=== PATIENT | male | born 1960 | race African-American/Black ===

== ENCOUNTER 2020-05-06 08:53 | Inpatient (IN) ==
[2020-05-06] MEDS ORDERED: TIROFIBAN 5,000 MCG/100 ML PREMIX IV ONE (09:30)
[2020-05-06] MEDS ORDERED: HEPARIN 5,000 UNIT/1 ML VIAL ONE (09:31)
[2020-05-06 11:42] LABS: Alanine Aminotransferase 19 U/L (16-61); Albumin 3.5 G/DL (3.4-5.0); Alkaline Phosphatase 136 U/L (45-117); Aspartate Amino Transferase 22 U/L (0-37); Bilirubin,Total < 0.39 MG/DL (0.2-1.0); Blood Urea Nitrogen 10 MG/DL (7-18); Estimated Glom Filtration Rate 102 ML/MIN; Glucose 80 MG/DL (74-106); Osmolality,Calculated 270.8 MOS/KG (273-304); Total Protein 7.8 G/DL (6.4-8.3)
[2020-05-06 12:29] LABS: Basophils % 0.6 % (0.0-0.8); Eosinophils # 0.1 10*3/uL (0.0-0.87); Eosinophils % 1.3 % (0.00-10.9); Hematocrit 43.7 VOL% (42.0-52.0); Hemoglobin 14.7 GM/DL (14.0-18.0); Immature Granulocytes % 0.2 %; Immature Granulocytes Absolute 0.01 #; Lymphocytes # 1.9 10*3/uL (1.4-4.0); Lymphocytes % 35.6 % (21.2-54.2); Mean Corpuscular HGB Conc 33.6 GM/DL (32-36); Mean Corpuscular Volume 90.3 FL (87-102); Mean Platelet Volume 10.1 FL (9.6-12.0); Monocytes % 7.1 % (1.7-12.7); Neutrophils % 55.2 % (38.7-73.9); Platelet Count 217 T/CUMM (130-400); Red Blood Count 4.84 MC/CUMM (3.8-5.5); Red Cell Distribution Width 14.1 % (9.3-17.3); White Blood Count 5.2 T/CUMM (4-12)
[2020-05-06] MEDS ORDERED: ACETAMINOPHEN 325 MG TABLET PO PRN (14:16)
[2020-05-06] MEDS ORDERED: ONDANSETRON 4 MG/2 ML VIAL IV PRN (14:16)
[2020-05-06] MEDS ORDERED: BISACODYL 5 MG TABLET PO PRN (14:16)
[2020-05-06] MEDS ORDERED: ASPIRIN EC 325 MG TABLET PO STA (14:21)
[2020-05-06] MEDS ORDERED: HEPARIN DRIP 25,000 UNITS/500 ML PREMIX IV SCH (14:30)
[2020-05-06 14:38] LABS: PT Patient Result 11.2 SECS (9.8-11.9); Partial Thromboplastin Time 40.9 SECS (23.9-33.8)
[2020-05-06 16:57] LABS: Calcium 9.3 MG/DL (8.5-10.1)
[2020-05-06 16:58] LABS: Albumin 3.8 G/DL (3.4-5.0); Blood Urea Nitrogen 8 MG/DL (7-18)
[2020-05-06 17:09] LABS: Alanine Aminotransferase 21 U/L (16-61); Alkaline Phosphatase 147 U/L (45-117); Aspartate Amino Transferase 26 U/L (0-37); Bilirubin,Total < 0.39 MG/DL (0.2-1.0); Estimated Glom Filtration Rate 108 ML/MIN; Glucose 94 MG/DL (74-106); Osmolality,Calculated 270.8 MOS/KG (273-304); Total Protein 8.2 G/DL (6.4-8.3)
[2020-05-06] MEDS: PHENYTOIN ER 100 MG CAPSULE PO SCH (20:17)
[2020-05-07 06:28] LABS: Bilirubin,Urine Negative (Negative); Blood, Urine Negative (Negative); Glucose,Urine (UA) Negative (Negative); Ketones,Urine Negative (Negative); Mucus,Urine Occasional /LPF (Occasional); Nitrite,Urine Negative (Negative); Protein,Urine Negative; RBC,Urine 1 /HPF (0-4); Squamous Epithelial Cell,Urine Occasional /HPF (0-10); Urine Appearance CLEAR (Clear); Urine Color Yellow (Yellow); Urine Specific Gravity 1.015 (1.001-1.035); Urine Urobilinogen < 2.0 EU/DL (0.2-1.0)
[2020-05-07] MEDS ORDERED: CHLORHEXIDINE 4% SOLN 118 ML BOTTLE TOP ONE (08:05)
[2020-05-07] MEDS: PANTOPRAZOLE 40 MG TABLET PO SCH (10:04)
[2020-05-07] MEDS: PHENYTOIN ER 100 MG CAPSULE PO SCH ×2 (10:04→21:24)
[2020-05-07] MEDS: amLODIPine 10 MG TABLET PO SCH (10:04)
[2020-05-07 10:12] LABS: Troponin I < 0.015 NG/ML (0.00-0.045)
[2020-05-07 12:40] LABS: Troponin I < 0.015 NG/ML (0.00-0.045)
[2020-05-07] MEDS ORDERED: hydrALAZINE 20 MG/1 ML VIAL IV PRN (13:55)
[2020-05-07] MEDS: LOSARTAN 25 MG TABLET PO SCH (16:43)
[2020-05-07 17:30] LABS: Troponin I < 0.015 NG/ML (0.00-0.045)
[2020-05-08] MEDS ORDERED: FAMOTIDINE 20 MG TABLET PO ONE (06:00)
[2020-05-08] MEDS ORDERED: ceFAZolin 1,000 MG in SYRINGE 1 EACH IV ONE (06:00)
[2020-05-08 08:21] LABS: PT Patient Result 10.9 SECS (9.8-11.9); Partial Thromboplastin Time 37.7 SECS (23.9-33.8)
[2020-05-08] MEDS: amLODIPine 10 MG TABLET PO SCH (09:23)
[2020-05-08] MEDS: PHENYTOIN ER 100 MG CAPSULE PO SCH ×2 (09:23→21:11)
[2020-05-08] MEDS: PANTOPRAZOLE 40 MG TABLET PO SCH (09:23)
[2020-05-08] MEDS: LOSARTAN 25 MG TABLET PO SCH (09:23)
[2020-05-08] MEDS ORDERED: HEPARIN 5,000 UNIT/1 ML VIAL ONE (09:48)
[2020-05-08] MEDS ORDERED: MIDAZOLAM 2 MG/2 ML VIAL ONE (10:03)
[2020-05-08] MEDS ORDERED: fentaNYL 100 MCG/2 ML VIAL ONE (10:03)
[2020-05-08] MEDS ORDERED: DEXAMETHASONE 4 MG/1 ML VIAL ONE (10:20)
[2020-05-08] MEDS ORDERED: LIDOCAINE 1% 5 ML VIAL ONE (10:20)
[2020-05-08] MEDS ORDERED: ROPIVACAINE 0.5% 30 ML VIAL ONE (10:20)
[2020-05-08] MEDS ORDERED: propofoL 200 MG/20 ML VIAL IV ONE (11:30)
[2020-05-08] MEDS ORDERED: ePHEDrine 50 MG/ML VIAL ONE (11:35)
[2020-05-08] MEDS ORDERED: GLYCOPYRROLATE 0.4 MG/2 ML VIAL ONE (12:19)
[2020-05-08] MEDS ORDERED: PHENYLEPHRINE 10 MG/1 ML VIAL IV ONE (12:21)
[2020-05-08] MEDS ORDERED: LACTATED RINGERS 1,000 ML IV ONE (12:39)
[2020-05-08] MEDS ORDERED: SODIUM CHLORIDE 0.9% 250 ML IV ONE (12:39)
[2020-05-08] MEDS ORDERED: TISSUE ADHESIVE 1 EACH APPLICATOR TOP ONE (14:07)
[2020-05-08] MEDS ORDERED: ONDANSETRON 4 MG/2 ML VIAL ONE (14:09)
[2020-05-08] MEDS ORDERED: HYDROmorphone 2 MG/1 ML VIAL IV PRN (14:18)
[2020-05-08] MEDS ORDERED: SEVOFLURANE 1 UNIT/15 MINUTE INH ONE (14:39)
[2020-05-09 07:32] LABS: Basophils % 0.2 % (0.0-0.8); Eosinophils % 0.4 % (0.00-10.9); Hematocrit 38.2 VOL% (42.0-52.0); Immature Granulocytes % 0.4 %; Immature Granulocytes Absolute 0.03 #; Lymphocytes # 1.9 10*3/uL (1.4-4.0); Lymphocytes % 21.9 % (21.2-54.2); Mean Corpuscular Volume 89.5 FL (87-102); Mean Platelet Volume 9.8 FL (9.6-12.0); Neutrophils % 69.1 % (38.7-73.9); Platelet Count 169 T/CUMM (130-400); Red Blood Count 4.27 MC/CUMM (3.8-5.5); Red Cell Distribution Width 13.9 % (9.3-17.3); White Blood Count 8.5 T/CUMM (4-12)
[2020-05-09 07:49] LABS: Calcium 8.5 MG/DL (8.5-10.1); Osmolality,Calculated 278.4 MOS/KG (273-304)
[2020-05-09] MEDS: PANTOPRAZOLE 40 MG TABLET PO SCH (09:39)
[2020-05-09] MEDS: PHENYTOIN ER 100 MG CAPSULE PO SCH (09:39)
[2020-05-09] MEDS: LOSARTAN 25 MG TABLET PO SCH ×2 (09:40→10:55)
[2020-05-09] MEDS: amLODIPine 10 MG TABLET PO SCH (09:40)
[2020-05-09 17:13] VITALS: BP 142/58
== END 2020-05-09 17:15 | disposition home or self-care (01) | DRG 181 ==
LOC: N.ED 08:53 → N.3E 14:16
PROVIDERS: ADMIT Surgery; ATTEND Surgery

== ENCOUNTER 2021-01-01 00:40 | Inpatient (IN) ==
[2021-01-01] MEDS ORDERED: SODIUM CHLORIDE 0.9% 1,000 ML IV STA (01:01)
[2021-01-01] MEDS ORDERED: VANCOMYCIN INJ 1,000 MG in SODIUM CHLORIDE 0.9% 250 ML IV STA (01:30)
[2021-01-01 01:36] LABS: Basophils % 0.1 % (0.0-0.8); Eosinophils % 0.1 % (0.00-10.9); Hematocrit 36.6 VOL% (42.0-52.0); Hemoglobin 12.5 GM/DL (14.0-18.0); Immature Granulocytes % 0.5 %; Immature Granulocytes Absolute 0.04 #; Lymphocytes # 0.5 10*3/uL (1.4-4.0); Lymphocytes % 5.7 % (21.2-54.2); Mean Corpuscular HGB Conc 34.2 GM/DL (32-36); Mean Corpuscular Volume 90.4 FL (87-102); Mean Platelet Volume 9.7 FL (9.6-12.0); Monocytes % 6.1 % (1.7-12.7); Neutrophils % 87.5 % (38.7-73.9); Platelet Count 204 T/CUMM (130-400); Red Blood Count 4.05 MC/CUMM (3.8-5.5); Red Cell Distribution Width 14.3 % (9.3-17.3); White Blood Count 7.9 T/CUMM (4-12)
[2021-01-01 02:03] LABS: Alanine Aminotransferase 31 U/L (16-61); Albumin 2.9 G/DL (3.4-5.0); Alkaline Phosphatase 109 U/L (45-117); Aspartate Amino Transferase 52 U/L (0-37); Blood Urea Nitrogen 16 MG/DL (7-18); Calcium 8.6 MG/DL (8.5-10.1); Carbon Dioxide 30 MMOL/L (21-32); Estimated Glom Filtration Rate 122 ML/MIN; Glucose 111 MG/DL (74-106); Osmolality,Calculated 278.5 MOS/KG (273-304); Potassium 3.8 MMOL/L (3.5-5.1); Sodium 139 MMOL/L (136-145); Total Protein 7.3 G/DL (6.4-8.2)
[2021-01-01 02:06] LABS: Bilirubin,Urine Negative (Negative); Blood, Urine Small mg/dL (Negative); Glucose,Urine (UA) Negative (Negative); Hyaline Casts,Urine 4 /LPF (0-3); Ketones,Urine Negative (Negative); Mucus,Urine Many /LPF (Occasional); Nitrite,Urine Negative (Negative); Protein,Urine 100 MG/DL; RBC,Urine 12 /HPF (0-4); Squamous Epithelial Cell,Urine Occasional /HPF (0-10); Urine Appearance CLEAR (Clear); Urine Color Yellow (Yellow); Urine Specific Gravity 1.024 (1.001-1.035)
[2021-01-01 02:10] LABS: Barbiturates Screen,Urine Negative (Negative); Benzodiazepines Screen,Urine Positive (Negative); Cannabinoid Screen,Urine Positive (Negative); Opiate Screen,Urine Positive (Negative); Phencyclidine Screen,Urine Negative (Negative)
[2021-01-01] MEDS ORDERED: DEXTROSE 50% 25 GM/50 ML VIAL IV PRN (04:07)
[2021-01-01] MEDS ORDERED: GLUCAGON 1 MG VIAL IM PRN (04:07)
[2021-01-01 04:10] LABS: Hypochromasia Slight; Microcytosis Slight; Platelet Estimate Normal
[2021-01-01] MEDS ORDERED: LABETALOL 20 MG/4 ML SYRINGE IV ONE (05:44)
[2021-01-01] MEDS: PIPERACILLIN/TAZOBACTAM 3,375 MG in SODIUM CHLORIDE 0.9% 100 ML IV SCH ×3 (06:30→22:34)
[2021-01-01 06:35] LABS: Lactic Acid 0.8 MMOL/L (0.4-2.0)
[2021-01-01 06:41] LABS: Calcium 8.6 MG/DL (8.5-10.1); Osmolality,Calculated 276.5 MOS/KG (273-304); Thyroid Stimulating Hormone 0.615 uIU/ml (0.358-3.74)
[2021-01-01] MEDS: amLODIPine 10 MG TABLET PO SCH ×2 (08:32→08:50)
[2021-01-01] MEDS: ENOXAPARIN 40 MG/0.4 ML SYRINGE SUBCUT SCH (08:32)
[2021-01-01] MEDS: LOSARTAN 50 MG TABLET PO SCH ×2 (08:32→08:50)
[2021-01-01] MEDS: PHENYTOIN ER 100 MG CAPSULE PO SCH ×2 (08:48→21:40)
[2021-01-01] MEDS: LORazepam 2 MG/1 ML VIAL IV PRN ×2 (08:49→12:18)
[2021-01-01] MEDS: hydrALAZINE 20 MG/1 ML VIAL IV PRN (12:17)
[2021-01-01] MEDS: ACETAMINOPHEN 650 MG SUPP RECTAL PRN (12:18)
[2021-01-01] MEDS ORDERED: KETOROLAC 15 MG/1 ML VIAL IV ONE (14:53)
[2021-01-01] MEDS: PHENYTOIN 100 MG/2 ML VIAL IV SCH ×2 (15:56→22:31)
[2021-01-01] MEDS: VANCOMYCIN INJ 750 MG in SODIUM CHLORIDE 0.9% 250 ML IV SCH (17:52)
[2021-01-01] MEDS: IBUPROFEN 100 MG/5 ML UDCUP PO PRN (21:40)
[2021-01-02] MEDS: VANCOMYCIN INJ 750 MG in SODIUM CHLORIDE 0.9% 250 ML IV SCH ×2 (03:53→15:13)
[2021-01-02 06:00] LABS: Basophils % 0.2 % (0.0-0.8); Eosinophils % 0.1 % (0.00-10.9); Hemoglobin 11.9 GM/DL (14.0-18.0); Immature Granulocytes % 0.6 %; Immature Granulocytes Absolute 0.05 #; Lymphocytes # 0.9 10*3/uL (1.4-4.0); Lymphocytes % 9.6 % (21.2-54.2); Mean Corpuscular HGB Conc 33.1 GM/DL (32-36); Mean Corpuscular Volume 90.7 FL (87-102); Mean Platelet Volume 9.6 FL (9.6-12.0); Monocytes % 7.5 % (1.7-12.7); Platelet Count 200 T/CUMM (130-400); Red Blood Count 3.97 MC/CUMM (3.8-5.5); Red Cell Distribution Width 14.3 % (9.3-17.3)
[2021-01-02 06:29] LABS: Albumin 2.2 G/DL (3.4-5.0); Bilirubin,Total 0.8 MG/DL (0.20-1.00); Calcium 8.2 MG/DL (8.5-10.1); Potassium 3.8 MMOL/L (3.5-5.1); Risk Ratio 1.88; Total Protein 6.3 G/DL (6.4-8.2)
[2021-01-02] MEDS: PIPERACILLIN/TAZOBACTAM 3,375 MG in SODIUM CHLORIDE 0.9% 100 ML IV SCH ×3 (06:42→23:55)
[2021-01-02] MEDS: PHENYTOIN 100 MG/2 ML VIAL IV SCH ×3 (07:09→23:36)
[2021-01-02] MEDS: amLODIPine 10 MG TABLET PO SCH (09:19)
[2021-01-02] MEDS: LOSARTAN 50 MG TABLET PO SCH (09:20)
[2021-01-02] MEDS: ENOXAPARIN 40 MG/0.4 ML SYRINGE SUBCUT SCH (09:20)
[2021-01-02] MEDS: IBUPROFEN 100 MG/5 ML UDCUP PO PRN ×2 (09:20→20:45)
[2021-01-02] MEDS: MENTHOL/ZINC OXIDE OINT 71 GM JAR TOP SCH (11:55)
[2021-01-02] MEDS: ACETAMINOPHEN 650 MG SUPP RECTAL PRN (11:55)
[2021-01-03 06:18] LABS: Basophils % 0.2 % (0.0-0.8); Eosinophils % 0.3 % (0.00-10.9); Hematocrit 39.5 VOL% (42.0-52.0); Hemoglobin 13.4 GM/DL (14.0-18.0); Immature Granulocytes % 0.4 %; Immature Granulocytes Absolute 0.04 #; Lymphocytes # 1.3 10*3/uL (1.4-4.0); Lymphocytes % 12.8 % (21.2-54.2); Mean Corpuscular HGB Conc 33.9 GM/DL (32-36); Mean Corpuscular Volume 90.4 FL (87-102); Mean Platelet Volume 9.3 FL (9.6-12.0); Monocytes % 7.2 % (1.7-12.7); Neutrophils % 79.1 % (38.7-73.9); Platelet Count 171 T/CUMM (130-400); Red Blood Count 4.37 MC/CUMM (3.8-5.5); Red Cell Distribution Width 14.2 % (9.3-17.3); White Blood Count 10.1 T/CUMM (4-12)
[2021-01-03] MEDS: VANCOMYCIN INJ 750 MG in SODIUM CHLORIDE 0.9% 250 ML IV SCH (07:33)
[2021-01-03] MEDS: PIPERACILLIN/TAZOBACTAM 3,375 MG in SODIUM CHLORIDE 0.9% 100 ML IV SCH ×2 (07:33→14:45)
[2021-01-03] MEDS: PHENYTOIN 100 MG/2 ML VIAL IV SCH ×3 (07:33→23:40)
[2021-01-03 08:35] LABS: Albumin 2.1 G/DL (3.4-5.0); Bilirubin,Total 0.6 MG/DL (0.20-1.00); Calcium 8.8 MG/DL (8.5-10.1); Osmolality,Calculated 271.8 MOS/KG (273-304); Total Protein 6.6 G/DL (6.4-8.2)
[2021-01-03] MEDS ORDERED: propofoL 200 MG/20 ML VIAL IV ONE (09:07)
[2021-01-03] MEDS ORDERED: fentaNYL 100 MCG/2 ML VIAL ONE (09:07)
[2021-01-03] MEDS ORDERED: MIDAZOLAM 2 MG/2 ML VIAL ONE (09:07)
[2021-01-03] MEDS ORDERED: LIDOCAINE 2% 5 ML VIAL ONE (09:07)
[2021-01-03] MEDS: MENTHOL/ZINC OXIDE OINT 71 GM JAR TOP SCH (09:10)
[2021-01-03] MEDS: amLODIPine 10 MG TABLET PO SCH (09:10)
[2021-01-03] MEDS: LOSARTAN 50 MG TABLET PO SCH (09:10)
[2021-01-03] MEDS ORDERED: LIDOCAINE 1% 5 ML VIAL ONE (09:11)
[2021-01-03] MEDS ORDERED: DEXAMETHASONE 4 MG/1 ML VIAL ONE (09:11)
[2021-01-03] MEDS ORDERED: BUPIVACAINE MPF 0.25% 30 ML VIAL ONE (09:11)
[2021-01-03] MEDS ORDERED: ePHEDrine 50 MG/ML VIAL ONE (10:20)
[2021-01-03] MEDS ORDERED: SEVOFLURANE 1 UNIT/15 MINUTE INH ONE ×5 (10:47→11:17)
[2021-01-03] MEDS ORDERED: HYDROmorphone 2 MG/1 ML VIAL ONE (10:47)
[2021-01-03] MEDS ORDERED: GLUCAGON 1 MG VIAL IM PRN (11:07)
[2021-01-03] MEDS ORDERED: DEXTROSE 50% 25 GM/50 ML VIAL IV PRN (11:07)
[2021-01-03] MEDS: INSULIN REGULAR 100 UNIT/ML SUBCUT SCH ×3 (11:42→23:24)
[2021-01-03] MEDS: KETOROLAC 10 MG TABLET PO SCH ×2 (17:12→23:42)
[2021-01-04] MEDS: VANCOMYCIN INJ 750 MG in SODIUM CHLORIDE 0.9% 250 ML IV SCH ×3 (00:47→23:51)
[2021-01-04] MEDS: PIPERACILLIN/TAZOBACTAM 3,375 MG in SODIUM CHLORIDE 0.9% 100 ML IV SCH ×3 (02:13→17:23)
[2021-01-04] MEDS: LORazepam 2 MG/1 ML VIAL IV PRN (03:41)
[2021-01-04] MEDS: KETOROLAC 10 MG TABLET PO SCH ×3 (06:22→17:49)
[2021-01-04] MEDS: LOSARTAN 50 MG TABLET PO SCH (08:39)
[2021-01-04] MEDS: amLODIPine 10 MG TABLET PO SCH (08:39)
[2021-01-04] MEDS: PHENYTOIN 100 MG/2 ML VIAL IV SCH ×2 (08:40→15:13)
[2021-01-04] MEDS: INSULIN REGULAR 100 UNIT/ML SUBCUT SCH ×4 (08:40→20:38)
[2021-01-04] MEDS: ENOXAPARIN 40 MG/0.4 ML SYRINGE SUBCUT SCH (09:16)
[2021-01-04] MEDS: MENTHOL/ZINC OXIDE OINT 71 GM JAR TOP SCH (09:17)
[2021-01-04] MEDS ORDERED: PHENYTOIN ER 100 MG CAPSULE PO SCH (16:00)
[2021-01-04] MEDS ORDERED: LORazepam 2 MG/1 ML VIAL IV PRN (18:16)
[2021-01-05] MEDS: KETOROLAC 10 MG TABLET PO SCH ×5 (00:53→23:47)
[2021-01-05] MEDS: PHENYTOIN 100 MG/2 ML VIAL IV SCH ×4 (00:54→23:47)
[2021-01-05] MEDS: PIPERACILLIN/TAZOBACTAM 3,375 MG in SODIUM CHLORIDE 0.9% 100 ML IV SCH ×3 (01:30→17:27)
[2021-01-05 06:56] LABS: Basophils % 0.3 % (0.0-0.8); Eosinophils # 0.2 10*3/uL (0.0-0.87); Eosinophils % 2.4 % (0.00-10.9); Hematocrit 36.3 VOL% (42.0-52.0); Hemoglobin 12.1 GM/DL (14.0-18.0); Immature Granulocytes % 0.7 %; Immature Granulocytes Absolute 0.05 #; Lymphocytes # 0.9 10*3/uL (1.4-4.0); Mean Corpuscular HGB Conc 33.3 GM/DL (32-36); Mean Corpuscular Volume 90.1 FL (87-102); Mean Platelet Volume 9.2 FL (9.6-12.0); Neutrophils % 76.6 % (38.7-73.9); Platelet Count 205 T/CUMM (130-400); Red Blood Count 4.03 MC/CUMM (3.8-5.5); Red Cell Distribution Width 14.1 % (9.3-17.3); White Blood Count 7.6 T/CUMM (4-12)
[2021-01-05 07:20] LABS: Albumin 1.9 G/DL (3.4-5.0); Bilirubin,Total 1.4 MG/DL (0.20-1.00); Calcium 8.3 MG/DL (8.5-10.1); Osmolality,Calculated 279.3 MOS/KG (273-304); Potassium 3.6 MMOL/L (3.5-5.1); Total Protein 6.2 G/DL (6.4-8.2)
[2021-01-05] MEDS: INSULIN REGULAR 100 UNIT/ML SUBCUT SCH ×4 (07:51→21:03)
[2021-01-05] MEDS: ENOXAPARIN 40 MG/0.4 ML SYRINGE SUBCUT SCH (08:55)
[2021-01-05] MEDS: LOSARTAN 50 MG TABLET PO SCH (08:55)
[2021-01-05] MEDS: amLODIPine 10 MG TABLET PO SCH (08:55)
[2021-01-05] MEDS: MENTHOL/ZINC OXIDE OINT 71 GM JAR TOP SCH (09:25)
[2021-01-05] MEDS: VANCOMYCIN INJ 750 MG in SODIUM CHLORIDE 0.9% 250 ML IV SCH ×2 (14:37→22:28)
[2021-01-06] MEDS: PIPERACILLIN/TAZOBACTAM 3,375 MG in SODIUM CHLORIDE 0.9% 100 ML IV SCH ×3 (01:12→16:10)
[2021-01-06] MEDS: KETOROLAC 10 MG TABLET PO SCH ×4 (05:14→23:53)
[2021-01-06 06:24] LABS: Basophils % 0.3 % (0.0-0.8); Eosinophils # 0.2 10*3/uL (0.0-0.87); Eosinophils % 2.6 % (0.00-10.9); Hematocrit 39.8 VOL% (42.0-52.0); Hemoglobin 13.3 GM/DL (14.0-18.0); Immature Granulocytes % 0.5 %; Immature Granulocytes Absolute 0.03 #; Lymphocytes # 1.1 10*3/uL (1.4-4.0); Lymphocytes % 16.1 % (21.2-54.2); Mean Corpuscular HGB Conc 33.4 GM/DL (32-36); Mean Corpuscular Volume 89.6 FL (87-102); Mean Platelet Volume 10.1 FL (9.6-12.0); Neutrophils % 71.5 % (38.7-73.9); Platelet Count 227 T/CUMM (130-400); Red Blood Count 4.44 MC/CUMM (3.8-5.5); White Blood Count 6.7 T/CUMM (4-12)
[2021-01-06 06:44] LABS: Calcium 8.7 MG/DL (8.5-10.1); Osmolality,Calculated 277.4 MOS/KG (273-304); Potassium 3.7 MMOL/L (3.5-5.1)
[2021-01-06] MEDS: INSULIN REGULAR 100 UNIT/ML SUBCUT SCH ×4 (08:26→21:12)
[2021-01-06] MEDS: ENOXAPARIN 40 MG/0.4 ML SYRINGE SUBCUT SCH (09:19)
[2021-01-06] MEDS: MENTHOL/ZINC OXIDE OINT 71 GM JAR TOP SCH (09:19)
[2021-01-06] MEDS: PHENYTOIN 100 MG/2 ML VIAL IV SCH ×3 (09:19→23:52)
[2021-01-06] MEDS: amLODIPine 10 MG TABLET PO SCH (09:19)
[2021-01-06] MEDS: LOSARTAN 50 MG TABLET PO SCH (09:19)
[2021-01-06] MEDS: VANCOMYCIN INJ 750 MG in SODIUM CHLORIDE 0.9% 250 ML IV SCH ×2 (13:28→23:03)
[2021-01-07] MEDS: PIPERACILLIN/TAZOBACTAM 3,375 MG in SODIUM CHLORIDE 0.9% 100 ML IV SCH ×2 (00:45→08:54)
[2021-01-07] MEDS: KETOROLAC 10 MG TABLET PO SCH ×3 (05:18→17:32)
[2021-01-07 05:32] LABS: Basophils % 0.3 % (0.0-0.8); Eosinophils # 0.2 10*3/uL (0.0-0.87); Hematocrit 34.2 VOL% (42.0-52.0); Immature Granulocytes % 0.3 %; Immature Granulocytes Absolute 0.02 #; Lymphocytes # 1.2 10*3/uL (1.4-4.0); Lymphocytes % 20.3 % (21.2-54.2); Mean Corpuscular Volume 90.5 FL (87-102); Mean Platelet Volume 10.1 FL (9.6-12.0); Monocytes % 10.3 % (1.7-12.7); Neutrophils % 65.8 % (38.7-73.9); Platelet Count 243 T/CUMM (130-400); Red Blood Count 3.78 MC/CUMM (3.8-5.5); Red Cell Distribution Width 13.9 % (9.3-17.3)
[2021-01-07 05:35] LABS: Hemoglobin 11.3 GM/DL (14.0-18.0)
[2021-01-07 05:44] LABS: Calcium 8.4 MG/DL (8.5-10.1); Osmolality,Calculated 281.1 MOS/KG (273-304); Potassium 3.6 MMOL/L (3.5-5.1)
[2021-01-07] MEDS: INSULIN REGULAR 100 UNIT/ML SUBCUT SCH ×2 (08:00→11:51)
[2021-01-07] MEDS: amLODIPine 10 MG TABLET PO SCH (08:22)
[2021-01-07] MEDS: LOSARTAN 50 MG TABLET PO SCH (08:22)
[2021-01-07] MEDS: PHENYTOIN 100 MG/2 ML VIAL IV SCH (08:22)
[2021-01-07] MEDS: ENOXAPARIN 40 MG/0.4 ML SYRINGE SUBCUT SCH (08:22)
[2021-01-07] MEDS: MENTHOL/ZINC OXIDE OINT 71 GM JAR TOP SCH (09:00)
[2021-01-07] MEDS: PHENYTOIN ER 100 MG CAPSULE PO SCH ×2 (09:05→21:07)
[2021-01-07] MEDS: VANCOMYCIN INJ 750 MG in SODIUM CHLORIDE 0.9% 250 ML IV SCH (12:55)
[2021-01-07] MEDS: hydrALAZINE 20 MG/1 ML VIAL IV PRN (15:43)
[2021-01-07] MEDS ORDERED: TUBERCULIN SKIN TEST 0.1 ML SYRINGE INTRADERM ONE (16:07)
[2021-01-07] MEDS ORDERED: levETIRAcetam 500 MG TABLET PO SCH (21:00)
[2021-01-07] MEDS: levETIRAcetam 250 MG TABLET PO SCH (21:07)
[2021-01-08] MEDS: KETOROLAC 10 MG TABLET PO SCH ×3 (00:38→11:54)
[2021-01-08] MEDS: amLODIPine 10 MG TABLET PO SCH (08:41)
[2021-01-08] MEDS: ENOXAPARIN 40 MG/0.4 ML SYRINGE SUBCUT SCH (08:41)
[2021-01-08] MEDS: PHENYTOIN ER 100 MG CAPSULE PO SCH ×2 (08:41→20:25)
[2021-01-08] MEDS: LOSARTAN 50 MG TABLET PO SCH (08:42)
[2021-01-08] MEDS: levETIRAcetam 250 MG TABLET PO SCH ×2 (08:42→20:25)
[2021-01-08] MEDS: hydrALAZINE 10 MG TABLET PO SCH ×3 (09:01→20:25)
[2021-01-08] MEDS: MENTHOL/ZINC OXIDE OINT 71 GM JAR TOP SCH (10:14)
[2021-01-09 07:50] VITALS: BP 171/95
[2021-01-09] MEDS: ENOXAPARIN 40 MG/0.4 ML SYRINGE SUBCUT SCH (08:24)
[2021-01-09] MEDS: LOSARTAN 50 MG TABLET PO SCH (08:25)
[2021-01-09] MEDS: hydrALAZINE 25 MG TABLET PO SCH ×2 (08:25→08:26)
[2021-01-09] MEDS: PHENYTOIN ER 100 MG CAPSULE PO SCH (08:25)
[2021-01-09] MEDS: levETIRAcetam 250 MG TABLET PO SCH (08:25)
[2021-01-09] MEDS: amLODIPine 10 MG TABLET PO SCH (08:25)
[2021-01-09] MEDS ORDERED: BISACODYL 10 MG SUPP RECTAL ONE (08:54)
[2021-01-09] MEDS: MENTHOL/ZINC OXIDE OINT 71 GM JAR TOP SCH (10:09)
== END 2021-01-09 10:45 | DRG 26 ==
LOC: EDUNIT# → EDBD → N.ED 00:40 → N.EDINP 04:07 → SUATTDRO 04:07 → N.3E 05:30
PROVIDERS: ADMIT Internal Medicine; ATTEND Internal Medicine

== ENCOUNTER 2021-03-19 15:35 | Inpatient (IN) ==
[2021-03-19] MEDS ORDERED: VANCOMYCIN INJ 1,500 MG in SODIUM CHLORIDE 0.9% 500 ML IV STA (16:16)
[2021-03-19] MEDS ORDERED: PIPERACILLIN/TAZOBACTAM 3,375 MG in SODIUM CHLORIDE 0.9% 100 ML IV STA (16:16)
[2021-03-19 17:04] LABS: Basophils % 0.3 % (0.0-0.8); Eosinophils % 0.2 % (0.00-10.9); Immature Granulocytes % 0.4 %; Immature Granulocytes Absolute 0.04 #; Lymphocytes # 1.1 10*3/uL (1.4-4.0); Mean Corpuscular HGB Conc 32.4 GM/DL (32-36); Mean Corpuscular Volume 91.4 FL (87-102); Mean Platelet Volume 9.9 FL (9.6-12.0); Monocytes % 9.3 % (1.7-12.7); Neutrophils % 77.8 % (38.7-73.9); Platelet Count 305 T/CUMM (130-400); Red Blood Count 4.05 MC/CUMM (3.8-5.5); Red Cell Distribution Width 14.5 % (9.3-17.3); White Blood Count 9.4 T/CUMM (4-12)
[2021-03-19] MEDS ORDERED: amLODIPine 5 MG TABLET PO STA (17:27)
[2021-03-19 17:39] LABS: Calcium 8.9 MG/DL (8.5-10.1); Osmolality,Calculated 278.5 MOS/KG (273-304); Potassium 4.1 MMOL/L (3.5-5.1)
[2021-03-19] MEDS ORDERED: ONDANSETRON 4 MG/2 ML VIAL IV PRN (17:57)
[2021-03-19 18:10] LABS: Sedimentation Rate-Westergren 75 MM/HR (0-20)
[2021-03-20] MEDS: PIPERACILLIN/TAZOBACTAM 3,375 MG in SODIUM CHLORIDE 0.9% 100 ML IV SCH ×3 (04:43→20:58)
[2021-03-20 06:47] LABS: Basophils % 0.4 % (0.0-0.8); Eosinophils % 0.3 % (0.00-10.9); Hematocrit 35.5 VOL% (42.0-52.0); Hemoglobin 11.1 GM/DL (14.0-18.0); Immature Granulocytes % 0.4 %; Immature Granulocytes Absolute 0.04 #; Lymphocytes # 1.1 10*3/uL (1.4-4.0); Mean Corpuscular HGB Conc 31.3 GM/DL (32-36); Mean Corpuscular Volume 94.7 FL (87-102); Mean Platelet Volume 10.5 FL (9.6-12.0); Monocytes % 9.8 % (1.7-12.7); Neutrophils % 78.1 % (38.7-73.9); Platelet Count 273 T/CUMM (130-400); Red Blood Count 3.75 MC/CUMM (3.8-5.5); Red Cell Distribution Width 14.3 % (9.3-17.3); White Blood Count 10.3 T/CUMM (4-12)
[2021-03-20 07:02] LABS: Calcium 8.9 MG/DL (8.5-10.1); Potassium 3.7 MMOL/L (3.5-5.1)
[2021-03-20] MEDS ORDERED: BUPIVACAINE 0.5% 50 ML VIAL ONE (10:19)
[2021-03-20] MEDS ORDERED: fentaNYL 100 MCG/2 ML VIAL ONE (10:21)
[2021-03-20] MEDS ORDERED: MIDAZOLAM 2 MG/2 ML VIAL ONE (10:21)
[2021-03-20] MEDS ORDERED: ONDANSETRON 4 MG/2 ML VIAL ONE (10:21)
[2021-03-20] MEDS ORDERED: LIDOCAINE 2% 5 ML VIAL ONE (10:21)
[2021-03-20] MEDS ORDERED: propofoL 200 MG/20 ML VIAL IV ONE (10:21)
[2021-03-20] MEDS ORDERED: KETOROLAC 30 MG/1 ML VIAL ONE (11:30)
[2021-03-20] MEDS ORDERED: LACTATED RINGERS 1,000 ML IV SCH (11:30)
[2021-03-20] MEDS ORDERED: PHENYLEPHRINE 1 MG/10 ML SYRINGE IV ONE (11:31)
[2021-03-20] MEDS ORDERED: SEVOFLURANE 1 UNIT/15 MINUTE INH ONE (11:43)
[2021-03-20] MEDS: levETIRAcetam 250 MG TABLET PO SCH (15:25)
[2021-03-20] MEDS: hydrALAZINE 25 MG TABLET PO SCH ×2 (15:25→20:58)
[2021-03-20] MEDS: levETIRAcetam 500 MG TABLET PO SCH (15:25)
[2021-03-20] MEDS: PHENYTOIN ER 100 MG CAPSULE PO SCH (21:55)
[2021-03-21] MEDS: levETIRAcetam 500 MG TABLET PO SCH ×3 (02:29→14:07)
[2021-03-21] MEDS: levETIRAcetam 250 MG TABLET PO SCH ×2 (02:46→14:07)
[2021-03-21] MEDS: PIPERACILLIN/TAZOBACTAM 3,375 MG in SODIUM CHLORIDE 0.9% 100 ML IV SCH ×3 (04:32→22:03)
[2021-03-21] MEDS: LOSARTAN 50 MG TABLET PO SCH (08:26)
[2021-03-21] MEDS: hydrALAZINE 25 MG TABLET PO SCH ×3 (08:26→22:02)
[2021-03-21] MEDS: PHENYTOIN ER 100 MG CAPSULE PO SCH ×2 (08:26→22:03)
[2021-03-21] MEDS: amLODIPine 10 MG TABLET PO SCH (08:26)
[2021-03-21] MEDS ORDERED: INFLUENZA VIRUS VACCINE 0.5 ML SYRINGE IM ONE (11:28)
[2021-03-22] MEDS: levETIRAcetam 500 MG TABLET PO SCH ×2 (02:10→14:17)
[2021-03-22] MEDS: levETIRAcetam 250 MG TABLET PO SCH ×2 (02:10→14:17)
[2021-03-22] MEDS: PIPERACILLIN/TAZOBACTAM 3,375 MG in SODIUM CHLORIDE 0.9% 100 ML IV SCH ×3 (05:13→20:58)
[2021-03-22] MEDS: PHENYTOIN ER 100 MG CAPSULE PO SCH ×2 (09:15→20:58)
[2021-03-22] MEDS: MULTIVITAMIN (CENTRUM) TABLET PO SCH (09:15)
[2021-03-22] MEDS: amLODIPine 10 MG TABLET PO SCH (09:15)
[2021-03-22] MEDS: hydrALAZINE 25 MG TABLET PO SCH ×3 (09:15→20:58)
[2021-03-22] MEDS: LOSARTAN 50 MG TABLET PO SCH (09:15)
[2021-03-23] MEDS: levETIRAcetam 250 MG TABLET PO SCH ×2 (03:59→14:45)
[2021-03-23] MEDS: levETIRAcetam 500 MG TABLET PO SCH ×2 (03:59→14:45)
[2021-03-23] MEDS: PIPERACILLIN/TAZOBACTAM 3,375 MG in SODIUM CHLORIDE 0.9% 100 ML IV SCH ×3 (05:26→20:55)
[2021-03-23] MEDS: LOSARTAN 50 MG TABLET PO SCH (09:57)
[2021-03-23] MEDS: MULTIVITAMIN (CENTRUM) TABLET PO SCH (09:57)
[2021-03-23] MEDS: amLODIPine 10 MG TABLET PO SCH (09:57)
[2021-03-23] MEDS: hydrALAZINE 25 MG TABLET PO SCH ×3 (09:57→20:55)
[2021-03-23] MEDS: PHENYTOIN ER 100 MG CAPSULE PO SCH ×2 (09:57→20:55)
[2021-03-24] MEDS: levETIRAcetam 250 MG TABLET PO SCH ×2 (02:20→15:34)
[2021-03-24] MEDS: levETIRAcetam 500 MG TABLET PO SCH ×2 (02:20→15:33)
[2021-03-24] MEDS: PIPERACILLIN/TAZOBACTAM 3,375 MG in SODIUM CHLORIDE 0.9% 100 ML IV SCH ×3 (05:15→20:30)
[2021-03-24] MEDS: LOSARTAN 50 MG TABLET PO SCH (08:52)
[2021-03-24] MEDS: MULTIVITAMIN (CENTRUM) TABLET PO SCH (08:52)
[2021-03-24] MEDS: amLODIPine 10 MG TABLET PO SCH (08:52)
[2021-03-24] MEDS: hydrALAZINE 25 MG TABLET PO SCH ×3 (08:55→20:38)
[2021-03-24] MEDS: PHENYTOIN ER 100 MG CAPSULE PO SCH ×2 (12:19→20:38)
[2021-03-24] MEDS: ACETAMINOPHEN 325 MG TABLET PO PRN (20:41)
[2021-03-24] MEDS: HYDROmorphone 2 MG/1 ML VIAL IV PRN ×2 (21:10→23:46)
[2021-03-25] MEDS: levETIRAcetam 250 MG TABLET PO SCH ×2 (03:15→15:02)
[2021-03-25] MEDS: levETIRAcetam 500 MG TABLET PO SCH ×2 (03:15→15:02)
[2021-03-25] MEDS: PIPERACILLIN/TAZOBACTAM 3,375 MG in SODIUM CHLORIDE 0.9% 100 ML IV SCH (04:25)
[2021-03-25] MEDS: hydrALAZINE 25 MG TABLET PO SCH ×3 (09:46→21:29)
[2021-03-25] MEDS: MULTIVITAMIN (CENTRUM) TABLET PO SCH (09:46)
[2021-03-25] MEDS: LOSARTAN 50 MG TABLET PO SCH (09:47)
[2021-03-25] MEDS: amLODIPine 10 MG TABLET PO SCH (09:47)
[2021-03-25] MEDS: PHENYTOIN ER 100 MG CAPSULE PO SCH ×2 (09:48→21:29)
[2021-03-25] MEDS: cefTRIAXone 1,000 MG in SODIUM CHLORIDE 0.9% 100 ML IV SCH (12:55)
[2021-03-25] MEDS ORDERED: INFLUENZA VIRUS VACCINE 0.5 ML SYRINGE IM ONE (15:42)
[2021-03-26] MEDS: levETIRAcetam 500 MG TABLET PO SCH ×2 (02:06→15:27)
[2021-03-26] MEDS: levETIRAcetam 250 MG TABLET PO SCH ×2 (02:06→15:27)
[2021-03-26] MEDS: PHENYTOIN ER 100 MG CAPSULE PO SCH ×2 (08:21→20:12)
[2021-03-26] MEDS: MULTIVITAMIN (CENTRUM) TABLET PO SCH (08:21)
[2021-03-26] MEDS: LOSARTAN 50 MG TABLET PO SCH (08:21)
[2021-03-26] MEDS: amLODIPine 10 MG TABLET PO SCH (08:21)
[2021-03-26] MEDS: hydrALAZINE 25 MG TABLET PO SCH ×3 (08:22→20:12)
[2021-03-26] MEDS: cefTRIAXone 1,000 MG in SODIUM CHLORIDE 0.9% 100 ML IV SCH (12:11)
[2021-03-27] MEDS: levETIRAcetam 500 MG TABLET PO SCH ×2 (02:06→15:34)
[2021-03-27] MEDS: levETIRAcetam 250 MG TABLET PO SCH ×2 (02:06→15:34)
[2021-03-27] MEDS: MULTIVITAMIN (CENTRUM) TABLET PO SCH (09:04)
[2021-03-27] MEDS: PHENYTOIN ER 100 MG CAPSULE PO SCH ×2 (09:04→20:30)
[2021-03-27] MEDS: hydrALAZINE 25 MG TABLET PO SCH ×3 (09:04→20:30)
[2021-03-27] MEDS: LOSARTAN 50 MG TABLET PO SCH (09:05)
[2021-03-27] MEDS: amLODIPine 10 MG TABLET PO SCH (09:05)
[2021-03-27] MEDS: cefTRIAXone 1,000 MG in SODIUM CHLORIDE 0.9% 100 ML IV SCH (13:25)
[2021-03-27] MEDS: ACETAMINOPHEN 325 MG TABLET PO PRN (20:31)
[2021-03-28] MEDS: HYDROmorphone 2 MG/1 ML VIAL IV PRN (01:38)
[2021-03-28] MEDS: levETIRAcetam 250 MG TABLET PO SCH (01:38)
[2021-03-28] MEDS: levETIRAcetam 500 MG TABLET PO SCH (01:38)
[2021-03-28 08:26] VITALS: BP 159/90
[2021-03-28] MEDS: PHENYTOIN ER 100 MG CAPSULE PO SCH (09:05)
[2021-03-28] MEDS: amLODIPine 10 MG TABLET PO SCH (09:05)
[2021-03-28] MEDS: hydrALAZINE 25 MG TABLET PO SCH (09:05)
[2021-03-28] MEDS: LOSARTAN 50 MG TABLET PO SCH (09:05)
[2021-03-28] MEDS: MULTIVITAMIN (CENTRUM) TABLET PO SCH (09:05)
== END 2021-03-28 13:30 | DRG 313 ==
LOC: EDBD → EDUNIT# → N.ED 15:35 → N.EDINP 15:35 → N.3E 21:48
PROVIDERS: ADMIT Surgery; ATTEND Surgery

== ENCOUNTER 2021-04-07 02:18 | Inpatient (IN) ==
[2021-04-07] MEDS ORDERED: SODIUM CHLORIDE 0.9% 1,000 ML IV STA (02:50)
[2021-04-07 03:02] LABS: Basophils % 0.2 % (0.0-0.8); Eosinophils # 0.1 10*3/uL (0.0-0.87); Eosinophils % 0.9 % (0.00-10.9); Hematocrit 36.9 VOL% (42.0-52.0); Hemoglobin 11.5 GM/DL (14.0-18.0); Immature Granulocytes % 0.3 %; Immature Granulocytes Absolute 0.03 #; Lymphocytes # 0.9 10*3/uL (1.4-4.0); Lymphocytes % 8.4 % (21.2-54.2); Mean Corpuscular HGB Conc 31.2 GM/DL (32-36); Mean Corpuscular Volume 91.3 FL (87-102); Mean Platelet Volume 9.9 FL (9.6-12.0); Monocytes % 5.7 % (1.7-12.7); Neutrophils % 84.5 % (38.7-73.9); Platelet Count 331 T/CUMM (130-400); Red Blood Count 4.04 MC/CUMM (3.8-5.5); Red Cell Distribution Width 14.5 % (9.3-17.3); White Blood Count 10.3 T/CUMM (4-12)
[2021-04-07 03:09] LABS: Alanine Aminotransferase 33 U/L (16-61); Alkaline Phosphatase 146 U/L (45-117); Aspartate Amino Transferase 33 U/L (0-37); Bilirubin,Total < 0.39 MG/DL (0.20-1.00); Blood Urea Nitrogen 10 MG/DL (7-18); Calcium 9.2 MG/DL (8.5-10.1); Carbon Dioxide 28 MMOL/L (21-32); Glucose 130 MG/DL (74-106); Lactic Acid 0.7 MMOL/L (0.4-2.0); Potassium 3.8 MMOL/L (3.5-5.1); Sodium 136 MMOL/L (136-145); Total Protein 8.1 G/DL (6.4-8.2)
[2021-04-07 03:10] LABS: PT Patient Result 11.4 SECS (10.5-12.0)
[2021-04-07 03:28] LABS: ABG Base Excess 1.3 MMOL/L (-2.5-2.5); ABG HCO3 26.4 MMOL/L (20-26); ABG PCO2 43.5 MM HG (35-48); ABG PH 7.401 (7.35-7.45); ABG PO2 44.3 MM HG (80-95); ABG TCO2 27.7 MMOL/L (23-27)
[2021-04-07 03:31] LABS: ABG Oxygen Saturation 80.2 % (95-100)
[2021-04-07 03:33] LABS: Estimated Glom Filtration Rate 0 ML/MIN
[2021-04-07 04:00] LABS: Bacteria,Urine Occasional /HPF (Few); Bilirubin,Urine Negative (Negative); Blood, Urine Small mg/dL (Negative); Glucose,Urine (UA) Negative (Negative); Ketones,Urine Negative (Negative); Nitrite,Urine Negative (Negative); Protein,Urine 30 MG/DL; RBC,Urine 5 /HPF (0-4); Squamous Epithelial Cell,Urine Occasional /HPF (0-10); Urine Appearance CLEAR (Clear); Urine Color Yellow (Yellow); Urine Specific Gravity 1.014 (1.001-1.035); Urine Urobilinogen < 2.0 EU/DL (0.2-1.0)
[2021-04-07 04:35] LABS: Barbiturates Screen,Urine Negative (Negative); Benzodiazepines Screen,Urine Positive (Negative); Cannabinoid Screen,Urine Negative (Negative); Opiate Screen,Urine Negative (Negative); Phencyclidine Screen,Urine Negative (Negative)
[2021-04-07] MEDS ORDERED: GLUCAGON 1 MG VIAL IM PRN (05:13)
[2021-04-07] MEDS ORDERED: DEXTROSE 50% 25 GM/50 ML VIAL IV PRN (05:13)
[2021-04-07 05:30] LABS: ABG Base Excess 3.6 MMOL/L (-2.5-2.5); ABG HCO3 27.3 MMOL/L (20-26); ABG Oxygen Saturation 78.5 % (95-100); ABG PCO2 45.7 MM HG (35-48); ABG PH 7.408 (7.35-7.45); ABG PO2 45.2 MM HG (80-95); ABG TCO2 26.2 MMOL/L (23-27)
[2021-04-07 06:35] LABS: ABG Base Excess 3.3 MMOL/L (-2.5-2.5); ABG HCO3 27.4 MMOL/L (20-26); ABG Oxygen Saturation 98.6 % (95-100); ABG PCO2 37.1 MM HG (35-48); ABG PH 7.469 (7.35-7.45); ABG TCO2 24.2 MMOL/L (23-27)
[2021-04-07] MEDS ORDERED: KETOROLAC 30 MG/1 ML VIAL IV ONE (06:49)
[2021-04-07] MEDS ORDERED: PHENYTOIN 100 MG/2 ML VIAL IV SCH (09:00)
[2021-04-07] MEDS ORDERED: PANTOPRAZOLE 40 MG VIAL IV SCH (09:00)
[2021-04-07] MEDS ORDERED: hydrALAZINE 20 MG/1 ML VIAL IV PRN (09:19)
[2021-04-07] MEDS ORDERED: LORazepam 2 MG/1 ML VIAL IV PRN (09:22)
[2021-04-07 10:18] LABS: Vitamin B12 293 PG/ML (211-911)
[2021-04-07] MEDS: LACTATED RINGERS 1,000 ML IV SCH ×2 (10:36→20:41)
[2021-04-07] MEDS: hydrALAZINE 25 MG TABLET PO SCH ×3 (10:37→22:04)
[2021-04-07] MEDS: amLODIPine 10 MG TABLET PO SCH (10:37)
[2021-04-07] MEDS: LOSARTAN 50 MG TABLET PO SCH (10:37)
[2021-04-07] MEDS: ACETAMINOPHEN 325 MG TABLET PO PRN (12:07)
[2021-04-07] MEDS: PHENYTOIN ER 100 MG CAPSULE PO SCH (22:03)
[2021-04-07] MEDS: levETIRAcetam 500 MG TABLET PO SCH (22:03)
[2021-04-08] MEDS: ACETAMINOPHEN 325 MG TABLET PO PRN ×4 (04:45→22:46)
[2021-04-08 04:47] LABS: Basophils % 0.2 % (0.0-0.8); Eosinophils # 0.1 10*3/uL (0.0-0.87); Eosinophils % 1.5 % (0.00-10.9); Hematocrit 36.2 VOL% (42.0-52.0); Hemoglobin 11.4 GM/DL (14.0-18.0); Immature Granulocytes % 0.3 %; Immature Granulocytes Absolute 0.03 #; Lymphocytes # 1.6 10*3/uL (1.4-4.0); Lymphocytes % 17.1 % (21.2-54.2); Mean Corpuscular HGB Conc 31.5 GM/DL (32-36); Mean Corpuscular Volume 90.3 FL (87-102); Mean Platelet Volume 10.2 FL (9.6-12.0); Monocytes % 10.4 % (1.7-12.7); Neutrophils % 70.5 % (38.7-73.9); Platelet Count 290 T/CUMM (130-400); Red Blood Count 4.01 MC/CUMM (3.8-5.5); Red Cell Distribution Width 14.3 % (9.3-17.3); White Blood Count 9.4 T/CUMM (4-12)
[2021-04-08 05:26] LABS: Albumin 2.7 G/DL (3.4-5.0); Bilirubin,Total 1.8 MG/DL (0.20-1.00); Calcium 9.3 MG/DL (8.5-10.1); Osmolality,Calculated 275.5 MOS/KG (273-304); Potassium 3.7 MMOL/L (3.5-5.1); Total Protein 7.6 G/DL (6.4-8.2)
[2021-04-08] MEDS: PHENYTOIN ER 100 MG CAPSULE PO SCH ×2 (09:20→21:33)
[2021-04-08] MEDS: levETIRAcetam 500 MG TABLET PO SCH ×2 (09:21→21:33)
[2021-04-08] MEDS: amLODIPine 10 MG TABLET PO SCH (09:22)
[2021-04-08] MEDS: PANTOPRAZOLE 40 MG TABLET PO SCH (09:22)
[2021-04-08] MEDS: LOSARTAN 50 MG TABLET PO SCH (09:22)
[2021-04-08] MEDS: hydrALAZINE 25 MG TABLET PO SCH ×3 (09:22→21:32)
[2021-04-09] MEDS: levETIRAcetam 500 MG TABLET PO SCH ×2 (08:34→21:42)
[2021-04-09] MEDS: hydrALAZINE 25 MG TABLET PO SCH ×3 (08:34→21:42)
[2021-04-09] MEDS: PHENYTOIN ER 100 MG CAPSULE PO SCH ×2 (08:34→21:42)
[2021-04-09] MEDS: LOSARTAN 50 MG TABLET PO SCH (08:35)
[2021-04-09] MEDS: amLODIPine 10 MG TABLET PO SCH (08:35)
[2021-04-09] MEDS: PANTOPRAZOLE 40 MG TABLET PO SCH (08:35)
[2021-04-09] MEDS: ACETAMINOPHEN 325 MG TABLET PO PRN ×2 (08:35→16:35)
[2021-04-09] MEDS ORDERED: cefTRIAXone 1,000 MG in SODIUM CHLORIDE 0.9% 100 ML IV ONE (15:35)
[2021-04-09] MEDS ORDERED: LORazepam 1 MG TABLET PO ONE (16:18)
[2021-04-09 21:51] LABS: Basophils % 0.1 % (0.0-0.8); Eosinophils % 0.1 % (0.00-10.9); Hematocrit 35.3 VOL% (42.0-52.0); Hemoglobin 11.1 GM/DL (14.0-18.0); Immature Granulocytes % 0.8 %; Immature Granulocytes Absolute 0.11 #; Lymphocytes # 1.4 10*3/uL (1.4-4.0); Lymphocytes % 9.6 % (21.2-54.2); Mean Corpuscular HGB Conc 31.4 GM/DL (32-36); Mean Corpuscular Volume 90.3 FL (87-102); Mean Platelet Volume 9.5 FL (9.6-12.0); Monocytes % 5.4 % (1.7-12.7); Platelet Count 264 T/CUMM (130-400); Red Blood Count 3.91 MC/CUMM (3.8-5.5); Red Cell Distribution Width 14.2 % (9.3-17.3); White Blood Count 14.5 T/CUMM (4-12)
[2021-04-09 22:04] LABS: Calcium 9.3 MG/DL (8.5-10.1); Osmolality,Calculated 274.8 MOS/KG (273-304); Potassium 3.8 MMOL/L (3.5-5.1)
[2021-04-10 08:37] LABS: Osmolality,Calculated 275.7 MOS/KG (273-304); Potassium 3.5 MMOL/L (3.5-5.1)
[2021-04-10 09:34] LABS: Basophils % 0.2 % (0.0-0.8); Eosinophils # 0.1 10*3/uL (0.0-0.87); Eosinophils % 0.6 % (0.00-10.9); Hematocrit 36.2 VOL% (42.0-52.0); Hemoglobin 11.4 GM/DL (14.0-18.0); Immature Granulocytes Absolute 0.13 #; Lymphocytes % 7.5 % (21.2-54.2); Mean Corpuscular HGB Conc 31.5 GM/DL (32-36); Mean Corpuscular Volume 89.8 FL (87-102); Mean Platelet Volume 9.5 FL (9.6-12.0); Monocytes % 6.6 % (1.7-12.7); Neutrophils % 84.1 % (38.7-73.9); Platelet Count 243 T/CUMM (130-400); Red Blood Count 4.03 MC/CUMM (3.8-5.5); Red Cell Distribution Width 14.1 % (9.3-17.3); White Blood Count 12.7 T/CUMM (4-12)
[2021-04-10] MEDS: amLODIPine 10 MG TABLET PO SCH (10:27)
[2021-04-10] MEDS: hydrALAZINE 25 MG TABLET PO SCH ×3 (10:27→22:13)
[2021-04-10] MEDS: PHENYTOIN ER 100 MG CAPSULE PO SCH ×2 (10:27→22:12)
[2021-04-10] MEDS: LOSARTAN 50 MG TABLET PO SCH (10:27)
[2021-04-10] MEDS: PANTOPRAZOLE 40 MG TABLET PO SCH (10:27)
[2021-04-10] MEDS: levETIRAcetam 500 MG TABLET PO SCH ×2 (10:27→22:12)
[2021-04-10] MEDS: cefTRIAXone 1,000 MG in SODIUM CHLORIDE 0.9% 100 ML IV SCH (16:36)
[2021-04-10] MEDS: ACETAMINOPHEN 325 MG TABLET PO PRN (22:12)
[2021-04-11 07:24] LABS: Basophils % 0.3 % (0.0-0.8); Eosinophils # 0.2 10*3/uL (0.0-0.87); Eosinophils % 2.8 % (0.00-10.9); Hematocrit 33.4 VOL% (42.0-52.0); Hemoglobin 10.8 GM/DL (14.0-18.0); Immature Granulocytes % 0.4 %; Immature Granulocytes Absolute 0.03 #; Lymphocytes # 1.4 10*3/uL (1.4-4.0); Lymphocytes % 17.3 % (21.2-54.2); Mean Corpuscular HGB Conc 32.3 GM/DL (32-36); Mean Corpuscular Volume 89.5 FL (87-102); Mean Platelet Volume 10.2 FL (9.6-12.0); Monocytes % 8.2 % (1.7-12.7); Platelet Count 241 T/CUMM (130-400); Red Blood Count 3.73 MC/CUMM (3.8-5.5); White Blood Count 7.9 T/CUMM (4-12)
[2021-04-11 07:59] LABS: Calcium 9.3 MG/DL (8.5-10.1); Osmolality,Calculated 272.1 MOS/KG (273-304); Potassium 3.7 MMOL/L (3.5-5.1)
[2021-04-11] MEDS: hydrALAZINE 25 MG TABLET PO SCH ×2 (09:03→17:05)
[2021-04-11] MEDS: levETIRAcetam 500 MG TABLET PO SCH (09:03)
[2021-04-11] MEDS: PHENYTOIN ER 100 MG CAPSULE PO SCH (09:03)
[2021-04-11] MEDS: LOSARTAN 50 MG TABLET PO SCH (09:04)
[2021-04-11] MEDS: PANTOPRAZOLE 40 MG TABLET PO SCH (09:05)
[2021-04-11] MEDS: amLODIPine 10 MG TABLET PO SCH (09:08)
[2021-04-11 16:19] VITALS: BP 145/93
[2021-04-11] MEDS: cefTRIAXone 1,000 MG in SODIUM CHLORIDE 0.9% 100 ML IV SCH (17:03)
== END 2021-04-11 18:25 | disposition home health service (06) | DRG 53 ==
LOC: SUATTDRO → EDUNIT# 02:18 → N.EDINP 02:18 → EDBD 02:18 → N.ED 02:18 → SUATTDRO 05:13 → N.EDINP 09:40 → N.5E 10:15
PROVIDERS: ADMIT Internal Medicine; ATTEND Internal Medicine

== ENCOUNTER 2021-04-13 13:14 | Inpatient (IN) ==
[2021-04-13] MEDS ORDERED: SODIUM CHLORIDE 0.9% 500 ML IV STA (13:43)
[2021-04-13] MEDS ORDERED: ACETAMINOPHEN 500 MG TABLET PO STA (14:28)
[2021-04-13 14:34] LABS: Basophils % 0.3 % (0.0-0.8); Eosinophils # 0.1 10*3/uL (0.0-0.87); Eosinophils % 0.7 % (0.00-10.9); Hematocrit 31.8 VOL% (42.0-52.0); Hemoglobin 10.2 GM/DL (14.0-18.0); Immature Granulocytes % 0.3 %; Immature Granulocytes Absolute 0.02 #; Lymphocytes # 1.4 10*3/uL (1.4-4.0); Lymphocytes % 18.2 % (21.2-54.2); Mean Corpuscular HGB Conc 32.1 GM/DL (32-36); Mean Corpuscular Volume 89.1 FL (87-102); Mean Platelet Volume 9.3 FL (9.6-12.0); Monocytes % 5.8 % (1.7-12.7); Neutrophils % 74.7 % (38.7-73.9); Platelet Count 297 T/CUMM (130-400); Red Blood Count 3.57 MC/CUMM (3.8-5.5); Red Cell Distribution Width 14.2 % (9.3-17.3); White Blood Count 7.4 T/CUMM (4-12)
[2021-04-13 14:52] LABS: Alanine Aminotransferase 31 U/L (16-61); Albumin 2.5 G/DL (3.4-5.0); Alkaline Phosphatase 138 U/L (45-117); Aspartate Amino Transferase 26 U/L (0-37); Bilirubin,Total < 0.39 MG/DL (0.20-1.00); Blood Urea Nitrogen 12 MG/DL (7-18); Calcium 8.7 MG/DL (8.5-10.1); Carbon Dioxide 28 MMOL/L (21-32); Estimated Glom Filtration Rate 96 ML/MIN; Glucose 93 MG/DL (74-106); Osmolality,Calculated 276.5 MOS/KG (273-304); Sodium 139 MMOL/L (136-145); Total Protein 7.5 G/DL (6.4-8.2)
[2021-04-13] MEDS ORDERED: PIPERACILLIN/TAZOBACTAM 3,375 MG in SODIUM CHLORIDE 0.9% 100 ML IV STA (15:29)
[2021-04-13] MEDS ORDERED: ACETAMINOPHEN 325 MG TABLET PO PRN (15:34)
[2021-04-13] MEDS ORDERED: DEXTROSE 50% 25 GM/50 ML VIAL IV PRN (15:34)
[2021-04-13] MEDS ORDERED: GLUCAGON 1 MG VIAL IM PRN (15:34)
[2021-04-13] MEDS ORDERED: ONDANSETRON 4 MG/2 ML VIAL IV PRN (15:34)
[2021-04-13] MEDS ORDERED: ALBUTEROL 2.5 MG/3 ML NEB RESP TX PRN (15:34)
[2021-04-13] MEDS: ENOXAPARIN 40 MG/0.4 ML SYRINGE SUBCUT SCH (16:23)
[2021-04-13] MEDS ORDERED: LORazepam 2 MG/1 ML VIAL IV PRN (16:23)
[2021-04-13] MEDS: MORPHINE 2 MG/1 ML SYRINGE IV PRN ×2 (16:25→21:10)
[2021-04-13] MEDS: SODIUM CHLORIDE 0.9% 1,000 ML IV SCH (17:38)
[2021-04-13] MEDS ORDERED: VANCOMYCIN INJ 1,000 MG in SODIUM CHLORIDE 0.9% 250 ML IV SCH (18:00)
[2021-04-13] MEDS: VANCOMYCIN INJ 750 MG in SODIUM CHLORIDE 0.9% 250 ML IV SCH (18:03)
[2021-04-13] MEDS: levETIRAcetam 500 MG TABLET PO SCH (21:09)
[2021-04-13] MEDS: hydrALAZINE 25 MG TABLET PO SCH (21:09)
[2021-04-13] MEDS: PHENYTOIN ER 100 MG CAPSULE PO SCH (21:09)
[2021-04-13] MEDS ORDERED: AZITHROMYCIN INJ 500 MG in SODIUM CHLORIDE 0.9% 250 ML IV SCH (23:00)
[2021-04-14] MEDS: PIPERACILLIN/TAZOBACTAM 3,375 MG in SODIUM CHLORIDE 0.9% 100 ML IV SCH ×2 (03:29→11:44)
[2021-04-14] MEDS: hydrALAZINE 25 MG TABLET PO SCH ×3 (09:16→21:55)
[2021-04-14] MEDS: levETIRAcetam 500 MG TABLET PO SCH ×2 (09:16→21:55)
[2021-04-14] MEDS: MULTIVITAMIN (OCUVITE) TABLET PO SCH (09:16)
[2021-04-14] MEDS: PHENYTOIN ER 100 MG CAPSULE PO SCH ×2 (09:16→21:55)
[2021-04-14] MEDS: amLODIPine 10 MG TABLET PO SCH (09:16)
[2021-04-14] MEDS: PANTOPRAZOLE 40 MG TABLET PO SCH (09:16)
[2021-04-14] MEDS: LOSARTAN 50 MG TABLET PO SCH (09:16)
[2021-04-14] MEDS: VANCOMYCIN INJ 750 MG in SODIUM CHLORIDE 0.9% 250 ML IV SCH (11:43)
[2021-04-14] MEDS: SULFAMETHOX/TRIMETHOPRIM 800-160 MG TABLET PO SCH ×2 (11:51→21:55)
[2021-04-14] MEDS: ENOXAPARIN 40 MG/0.4 ML SYRINGE SUBCUT SCH (15:21)
[2021-04-15 05:10] LABS: Basophils % 0.4 % (0.0-0.8); Eosinophils # 0.1 10*3/uL (0.0-0.87); Eosinophils % 0.5 % (0.00-10.9); Hematocrit 33.9 VOL% (42.0-52.0); Hemoglobin 10.9 GM/DL (14.0-18.0); Immature Granulocytes % 0.5 %; Immature Granulocytes Absolute 0.05 #; Lymphocytes # 1.8 10*3/uL (1.4-4.0); Lymphocytes % 19.3 % (21.2-54.2); Mean Corpuscular HGB Conc 32.2 GM/DL (32-36); Mean Platelet Volume 9.5 FL (9.6-12.0); Monocytes % 7.6 % (1.7-12.7); Neutrophils % 71.7 % (38.7-73.9); Platelet Count 332 T/CUMM (130-400); Red Blood Count 3.81 MC/CUMM (3.8-5.5); White Blood Count 9.2 T/CUMM (4-12)
[2021-04-15 05:44] LABS: Calcium 9.4 MG/DL (8.5-10.1); Potassium 3.7 MMOL/L (3.5-5.1)
[2021-04-15] MEDS ORDERED: VANCOMYCIN INJ 1,000 MG in SODIUM CHLORIDE 0.9% 250 ML IV ONE (10:02)
[2021-04-15] MEDS ORDERED: BUPIVACAINE 0.5% 50 ML VIAL ONE (10:23)
[2021-04-15] MEDS ORDERED: DEXMEDETOMIDINE 200 MCG/2 ML VIAL ONE (10:24)
[2021-04-15] MEDS ORDERED: EPINEPHrine 1 MG/ML VIAL ONE (10:24)
[2021-04-15] MEDS ORDERED: KETAMINE 500 MG/10 ML VIAL ONE (10:24)
[2021-04-15] MEDS: SODIUM CHLORIDE 0.9% 1,000 ML IV SCH ×3 (10:51→19:21)
[2021-04-15] MEDS ORDERED: ePHEDrine 50 MG/ML VIAL ONE (12:05)
[2021-04-15] MEDS ORDERED: KETOROLAC 30 MG/1 ML VIAL ONE (12:23)
[2021-04-15] MEDS ORDERED: LACTATED RINGERS 1,000 ML IV ONE (12:23)
[2021-04-15] MEDS ORDERED: ONDANSETRON 4 MG/2 ML VIAL ONE (12:23)
[2021-04-15] MEDS: hydrALAZINE 25 MG TABLET PO SCH ×3 (12:26→21:09)
[2021-04-15] MEDS: LOSARTAN 50 MG TABLET PO SCH (12:30)
[2021-04-15] MEDS: SULFAMETHOX/TRIMETHOPRIM 800-160 MG TABLET PO SCH ×2 (12:30→21:09)
[2021-04-15] MEDS: PHENYTOIN ER 100 MG CAPSULE PO SCH ×2 (12:30→21:08)
[2021-04-15] MEDS: amLODIPine 10 MG TABLET PO SCH (12:31)
[2021-04-15] MEDS: levETIRAcetam 500 MG TABLET PO SCH ×2 (12:31→21:09)
[2021-04-15] MEDS: MULTIVITAMIN (OCUVITE) TABLET PO SCH (12:31)
[2021-04-15] MEDS ORDERED: SEVOFLURANE 1 UNIT/15 MINUTE INH ONE (12:32)
[2021-04-15] MEDS: PANTOPRAZOLE 40 MG TABLET PO SCH (12:32)
[2021-04-15] MEDS ORDERED: HYDROmorphone 2 MG/1 ML VIAL IV PRN ×2 (12:43)
[2021-04-15] MEDS ORDERED: SULFAMETHOX/TRIMETHOPRIM 800-160 MG TABLET PO SCH (13:00)
[2021-04-15] MEDS: KETOROLAC 10 MG TABLET PO SCH ×2 (15:46→21:08)
[2021-04-16] MEDS: KETOROLAC 10 MG TABLET PO SCH ×4 (04:58→21:25)
[2021-04-16] MEDS: levETIRAcetam 500 MG TABLET PO SCH ×2 (10:12→21:25)
[2021-04-16] MEDS: PANTOPRAZOLE 40 MG TABLET PO SCH (10:12)
[2021-04-16] MEDS: hydrALAZINE 25 MG TABLET PO SCH ×3 (10:12→21:25)
[2021-04-16] MEDS: SULFAMETHOX/TRIMETHOPRIM 800-160 MG TABLET PO SCH ×2 (10:12→21:25)
[2021-04-16] MEDS: MULTIVITAMIN (OCUVITE) TABLET PO SCH (10:12)
[2021-04-16] MEDS: amLODIPine 10 MG TABLET PO SCH (10:12)
[2021-04-16] MEDS: LOSARTAN 50 MG TABLET PO SCH (10:12)
[2021-04-16] MEDS: PHENYTOIN ER 100 MG CAPSULE PO SCH ×2 (10:12→21:25)
[2021-04-16] MEDS: SODIUM CHLORIDE 0.9% 1,000 ML IV SCH (10:17)
[2021-04-16 12:32] LABS: Basophils % 0.1 % (0.0-0.8); Eosinophils % 0.5 % (0.00-10.9); Hematocrit 29.5 VOL% (42.0-52.0); Hemoglobin 9.4 GM/DL (14.0-18.0); Immature Granulocytes % 0.6 %; Immature Granulocytes Absolute 0.05 #; Lymphocytes # 1.4 10*3/uL (1.4-4.0); Lymphocytes % 16.6 % (21.2-54.2); Mean Corpuscular HGB Conc 31.9 GM/DL (32-36); Mean Corpuscular Volume 88.6 FL (87-102); Mean Platelet Volume 9.8 FL (9.6-12.0); Monocytes % 7.3 % (1.7-12.7); Neutrophils % 74.9 % (38.7-73.9); Platelet Count 296 T/CUMM (130-400); Red Blood Count 3.33 MC/CUMM (3.8-5.5); Red Cell Distribution Width 14.2 % (9.3-17.3); White Blood Count 8.3 T/CUMM (4-12)
[2021-04-16 13:00] LABS: Calcium 8.3 MG/DL (8.5-10.1); Osmolality,Calculated 283.1 MOS/KG (273-304); Potassium 3.9 MMOL/L (3.5-5.1)
[2021-04-16 13:06] LABS: Anisocytosis 1+; Hypochromasia 1+; Schistocytes Slight; Spherocytes Slight
[2021-04-16 13:07] LABS: Platelet Estimate Adequate
[2021-04-17] MEDS: KETOROLAC 10 MG TABLET PO SCH ×4 (04:24→21:55)
[2021-04-17 06:28] LABS: Basophils % 0.3 % (0.0-0.8); Eosinophils # 0.1 10*3/uL (0.0-0.87); Eosinophils % 1.7 % (0.00-10.9); Hematocrit 32.9 VOL% (42.0-52.0); Hemoglobin 9.9 GM/DL (14.0-18.0); Immature Granulocytes % 0.6 %; Immature Granulocytes Absolute 0.04 #; Lymphocytes # 1.7 10*3/uL (1.4-4.0); Lymphocytes % 24.8 % (21.2-54.2); Mean Corpuscular HGB Conc 30.1 GM/DL (32-36); Mean Corpuscular Volume 92.9 FL (87-102); Mean Platelet Volume 9.6 FL (9.6-12.0); Monocytes % 10.2 % (1.7-12.7); Neutrophils % 62.4 % (38.7-73.9); Platelet Count 318 T/CUMM (130-400); Red Blood Count 3.54 MC/CUMM (3.8-5.5); Red Cell Distribution Width 14.6 % (9.3-17.3); White Blood Count 6.6 T/CUMM (4-12)
[2021-04-17 06:52] LABS: Calcium 8.7 MG/DL (8.5-10.1); Osmolality,Calculated 278.4 MOS/KG (273-304); Potassium 4.1 MMOL/L (3.5-5.1)
[2021-04-17] MEDS: LOSARTAN 50 MG TABLET PO SCH (09:29)
[2021-04-17] MEDS: MULTIVITAMIN (OCUVITE) TABLET PO SCH (09:29)
[2021-04-17] MEDS: PHENYTOIN ER 100 MG CAPSULE PO SCH ×2 (09:29→21:54)
[2021-04-17] MEDS: SULFAMETHOX/TRIMETHOPRIM 800-160 MG TABLET PO SCH ×2 (09:29→21:55)
[2021-04-17] MEDS: hydrALAZINE 25 MG TABLET PO SCH ×3 (09:29→21:55)
[2021-04-17] MEDS: levETIRAcetam 500 MG TABLET PO SCH ×2 (09:29→21:55)
[2021-04-17] MEDS: PANTOPRAZOLE 40 MG TABLET PO SCH (09:29)
[2021-04-17] MEDS: amLODIPine 10 MG TABLET PO SCH (09:30)
[2021-04-17] MEDS: ENOXAPARIN 40 MG/0.4 ML SYRINGE SUBCUT SCH (21:55)
[2021-04-18] MEDS: KETOROLAC 10 MG TABLET PO SCH ×3 (05:10→16:09)
[2021-04-18] MEDS: MULTIVITAMIN (OCUVITE) TABLET PO SCH (08:15)
[2021-04-18] MEDS: levETIRAcetam 500 MG TABLET PO SCH (08:16)
[2021-04-18] MEDS: PHENYTOIN ER 100 MG CAPSULE PO SCH (08:16)
[2021-04-18] MEDS: SULFAMETHOX/TRIMETHOPRIM 800-160 MG TABLET PO SCH (08:17)
[2021-04-18] MEDS: hydrALAZINE 25 MG TABLET PO SCH ×2 (08:17→16:09)
[2021-04-18] MEDS: PANTOPRAZOLE 40 MG TABLET PO SCH (08:18)
[2021-04-18] MEDS: LOSARTAN 50 MG TABLET PO SCH (08:18)
[2021-04-18] MEDS: amLODIPine 10 MG TABLET PO SCH (08:18)
[2021-04-18 08:41] LABS: Basophils % 0.3 % (0.0-0.8); Eosinophils # 0.2 10*3/uL (0.0-0.87); Eosinophils % 3.6 % (0.00-10.9); Hematocrit 34.2 VOL% (42.0-52.0); Hemoglobin 10.5 GM/DL (14.0-18.0); Immature Granulocytes % 0.5 %; Immature Granulocytes Absolute 0.03 #; Lymphocytes # 1.4 10*3/uL (1.4-4.0); Lymphocytes % 22.2 % (21.2-54.2); Mean Corpuscular HGB Conc 30.7 GM/DL (32-36); Mean Platelet Volume 9.8 FL (9.6-12.0); Neutrophils % 66.4 % (38.7-73.9); Platelet Count 352 T/CUMM (130-400); Red Blood Count 3.76 MC/CUMM (3.8-5.5); Red Cell Distribution Width 14.6 % (9.3-17.3); White Blood Count 6.3 T/CUMM (4-12)
[2021-04-18 08:59] LABS: Calcium 8.9 MG/DL (8.5-10.1); Osmolality,Calculated 284.1 MOS/KG (273-304); Potassium 4.5 MMOL/L (3.5-5.1)
[2021-04-18 16:10] VITALS: BP 149/59
== END 2021-04-18 17:29 | DRG 305 ==
LOC: EDUNIT# → EDBD → EDSEX → N.ED 13:14 → SUATTDRO 15:34 → N.EDINP 15:34 → N.5E 16:47
PROVIDERS: ADMIT Internal Medicine; ATTEND Family Medicine